=== PATIENT | female | born 1960 | race Caucasian/White ===

== ENCOUNTER 2018-11-12 08:36 | Emergency (ER) | payer MEDICAID ==
[~2018-11-12] VITALS: Ht 165.1 cm; Wt 77.0 kg
[~2018-11-12 08:36] MED LIST: CYCL-1 PO; DOCU-28 PO; HYDR-4383 PO; INSU100V36 SQ; LANTUS SUBCUT; METF-438 PO; SENN25TA27 PO
--- NOTE | 2018-11-12 09:00 | NUR ---
DR CEDENO NOTIFIED OF PT RECENT DIARRHEA AND LOW BLOOD SUGAR THIS MORNING 21, EMS INTERVENTION AMP D50 BG 166 AND RN CHECK 86, NO ORDERS RECEIVED DR Ornelas STATES WILL GO SEE PT NOW, LABS DRAWN FROM IV.
[2018-11-12] MEDS ORDERED: dextrose 50%-water 50ml dispensing syringe IV ONE ×3 (09:25→09:35)
[2018-11-12 09:26] LABS: BASOPHILS # (AUTO) 0.1 X10'3 (0-0.2); BASOPHILS % (AUTO) 0.9 % (0-1); EOSINOPHILS # (AUTO) 0.4 X10'3 (0-0.9); HEMATOCRIT 37.7 % (35.0-45.0); HEMOGLOBIN 12.9 g/dl (12.0-16.0); LYMPHOCYTES # (AUTO) 2.9 X10'3 (1.1-4.8); MEAN CORPUSCULAR HEMOGLOBIN 31.3 PG (27.0-31.0); MEAN CORPUSCULAR HGB CONC 34.1 g/dL (33.0-36.5); MEAN CORPUSCULAR VOLUME 91.8 FL (78-98); MEAN PLATELET VOLUME 8.6 FL (7.4-10.4); MONOCYTES # (AUTO) 1.1 X10'3 (0-0.9); MONOCYTES % (AUTO) 8.8 % (2-12); NEUTROPHILS # (AUTO) 7.6 X10'3 (1.8-7.7); NEUTROPHILS % (AUTO) 63.3 % (42-75); PLATELET COUNT 477 X10'3 (140-440); RED BLOOD COUNT 4.11 X10'6 (4.20-5.60); RED CELL DISTRIBUTION WIDTH 13.9 % (11.5-14.5); WHITE BLOOD COUNT 12.1 X10'3 (4.5-11.0)
[2018-11-12 09:42] LABS: ALANINE AMINOTRANSFERASE 27 U/L (12-78); ALBUMIN 3.7 G/DL (3.4-5.0); ALKALINE PHOSPHATASE 74 IU/L (46-116); ANION GAP 12 (8-16); ASPARTATE AMINO TRANSFERASE 13 U/L (10-37); BILIRUBIN,TOTAL 0.3 MG/DL (0.1-1.0); BLOOD UREA NITROGEN 24 MG/DL (7-18); BUN/CREATININE RATIO 18.8 (6.6-38.0); CALCIUM 9.4 MG/DL (8.5-10.1); CHLORIDE 106 MMOL/L (99-107); CREATININE 1.28 MG/DL (0.40-0.90); GLUCOSE 69 MG/DL (70-104); MAGNESIUM 1.2 MG/DL (1.5-2.4); SODIUM 142 MMOL/L (135-145); TOTAL CARBON DIOXIDE 24.1 MMOL/L (24-32); TOTAL PROTEIN 7.5 G/DL (6.4-8.2); eGFR 43 ML/MIN
[2018-11-12 09:57] LABS: POTASSIUM 2.9 MMOL/L (3.5-5.1)
--- NOTE | 2018-11-12 09:57 | NUR ---
PT IS MORE AWAKE AFTER AMP D50 AND MILK, EYES OPEN TALKING TO STAFF AND SPOUSE, STAT MEAL TRAY ORDERED BY BODY DESIGNER, STRAIGHT URINE OBTAINED AND SENT TO LAB PER ORDERS
[2018-11-12 10:11] LABS: CLARITY,URINE SLIGHTLY CLOUDY (Clear); COLOR,URINE YELLOW (Yellow); GLUCOSE, URINE 250 mg/dl (Neg); KETONES,URINE NEGATIVE (Neg); LEUKOCYTE ESTERASE ,URINE NEGATIVE (Neg); NITRITES, URINE NEGATIVE (Neg); OCCULT BLOOD,URINE NEGATIVE (Neg); PH,URINE 5.5 (4.8-8.0); PROTEIN,URINE 100 mg/dl (Neg); UROBILINOGEN,URINE 0.2 E.U/dL (0.2-1.0)
[2018-11-12 10:18] LABS: SQUAMOUS EPITHELIAL CELL,UR FEW /LPF (FEW); UA COLLECTION TYPE STRAIGHT CATH
[2018-11-12 10:19] LABS: HYALINE CASTS 0-3 /LPF (NEGATIVE)
--- NOTE | 2018-11-12 10:19 | NUR ---
PT SITTING UP AND EATING MEAL TRAY NOW, SPOUSE REMAINS AT BEDSIDE, PT CONTINUES TO IMPROVE IN SKIN COLOR, RESPONSIVE AND A&OX 4
[2018-11-12 10:21] LABS: BACTERIA,URINE FEW /HPF (Neg); RBC,URINE 0-2 /HPF (0-2); WBC,URINE 0-4 /HPF (0-4)
[2018-11-12 10:22] LABS: AMORPHOUS URATES 1+
--- NOTE | 2018-11-12 10:31 | NUR ---
DR CEDENO ASKED IF HE WILL BE ORDERING POTASSIUM DUE TO LOW POTASSIUM 2.9, ORDERS TO FOLLOW.
[2018-11-12] MEDS ORDERED: potassium Cl 20 mEq SR tablet PO STA (10:32)
[2018-11-12] MEDS ORDERED: magnesium oxide 400mg tablet PO ONE (10:35)
[2018-11-12] MEDS ORDERED: normal saline 1000ML IV soln IV ONE (12:30)
--- NOTE | 2018-11-12 12:37 | NUR ---
STOOL SAMPLE SENT TO LAB PER ORDERESTEFANIA NOW
--- NOTE | 2018-11-12 12:38 | NUR ---
[facility] IS PT RIDE HOME AND IS LEAVING NOW H# [phone] AND C [phone] CALL [facility] FOR PT TRANSPORT HOME WHEN DISCHARGED
[2018-11-12 13:26] LABS: C DIFF ANTIGEN NEGATIVE (NEGATIVE); C DIFF SPECIMEN=DIARRHEA? ACCEPTABLE; C DIFFICILE TOXINS A&B NEGATIVE (Neg)
--- NOTE | 2018-11-12 14:10 | NUR ---
DR CEDENO NOTIFIED PT C/O NAUSEA, AND PT BG 160, ORDERS FOR ZOFRAN TO FOLLOW
[2018-11-12] MEDS ORDERED: ondansetron/PF 4mg/2ml inj IV ONE (14:15)
[2018-11-12 14:19] VITALS: BP 174/93
== END 2018-11-12 14:36 | disposition home or self-care (01) ==
LOC: ER 08:36
DX: K52.9 Noninfective gastroenteritis and colitis, unspecified (principal); E87.2 Acidosis; E11.649 Type 2 diabetes mellitus with hypoglycemia without coma; I10 Essential (primary) hypertension; Z79.4 Long term (current) use of insulin; Z79.899 Other long term (current) drug therapy
CPT/HCPCS: 36415; 71045; 80053; 81001; 82948; 83605; 83735; 84145; 84484; 85025; 87040; 87045; 87046; 87324; 87449; 89055; 93005; 96361; 96374; 96375; 99284; J2405; J7030; J7040

== ENCOUNTER 2019-08-05 18:47 | Emergency (ER) | payer MEDICAID ==
[~2019-08-05] VITALS: Ht 160 cm; Wt 67.7 kg
[2019-08-05 19:42] LABS: BASOPHILS # (AUTO) 0.1 X10'3 (0-0.2); BASOPHILS % (AUTO) 0.9 % (0-1); EOSINOPHILS # (AUTO) 0.3 X10'3 (0-0.9); EOSINOPHILS % (AUTO) 2.9 % (0-6); HEMATOCRIT 35.6 % (35.0-45.0); HEMOGLOBIN 12.1 g/dl (12.0-16.0); LYMPHOCYTES % (AUTO) 26.3 % (21-51); MEAN CORPUSCULAR HEMOGLOBIN 31.5 PG (27.0-31.0); MEAN CORPUSCULAR HGB CONC 33.9 g/dL (33.0-36.5); MEAN CORPUSCULAR VOLUME 92.9 FL (78-98); MEAN PLATELET VOLUME 8.9 FL (7.4-10.4); MONOCYTES # (AUTO) 0.7 X10'3 (0-0.9); MONOCYTES % (AUTO) 5.9 % (2-12); NEUTROPHILS # (AUTO) 7.2 X10'3 (1.8-7.7); PLATELET COUNT 373 X10'3 (140-440); RED BLOOD COUNT 3.83 X10'6 (4.20-5.60); RED CELL DISTRIBUTION WIDTH 13.7 % (11.5-14.5); WHITE BLOOD COUNT 11.3 X10'3 (4.5-11.0)
[2019-08-05 19:54] LABS: ALANINE AMINOTRANSFERASE 36 U/L (12-78); ALBUMIN 3.6 G/DL (3.4-5.0); ALKALINE PHOSPHATASE 85 IU/L (46-116); ANION GAP 8 (8-16); ASPARTATE AMINO TRANSFERASE 20 U/L (10-37); BILIRUBIN,TOTAL 0.2 MG/DL (0.1-1.0); BLOOD UREA NITROGEN 23 MG/DL (7-18); BUN/CREATININE RATIO 14.8 (6.6-38.0); CALCIUM 9.3 MG/DL (8.5-10.1); CHLORIDE 101 MMOL/L (99-107); CREATININE 1.55 MG/DL (0.40-0.90); GLUCOSE 295 MG/DL (70-104); POTASSIUM 4.1 MMOL/L (3.5-5.1); SODIUM 138 MMOL/L (135-145); TOTAL CARBON DIOXIDE 29.1 MMOL/L (24-32); TOTAL PROTEIN 7.2 G/DL (6.4-8.2); eGFR 34 ML/MIN
--- NOTE | 2019-08-05 20:09 | NUR ---
Pt states she has diabetic neuropathy that makes her feet and legs numb over the last few years. Pt has told her doctor about it, but Pt states that she "just skips over that part."
[2019-08-05 21:13] LABS: CLARITY,URINE CLEAR (Clear); COLOR,URINE YELLOW (Yellow); GLUCOSE, URINE 250 mg/dl (Neg); KETONES,URINE NEGATIVE (Neg); LEUKOCYTE ESTERASE ,URINE NEGATIVE (Neg); NITRITES, URINE NEGATIVE (Neg); OCCULT BLOOD,URINE NEGATIVE (Neg); PROTEIN,URINE 30 mg/dl (Neg); UROBILINOGEN,URINE 0.2 E.U/dL (0.2-1.0)
[2019-08-05 21:20] LABS: UA COLLECTION TYPE CLN CATCH MIDSTREAM
[2019-08-05 21:23] LABS: BACTERIA,URINE FEW /HPF (Neg); RBC,URINE NONE SEEN /HPF (0-2); SQUAMOUS EPITHELIAL CELL,UR MODERATE /LPF (FEW); TRANSITIONAL EPI CELLS,URINE FEW /HPF; WBC,URINE 0-4 /HPF (0-4)
[2019-08-05 21:30] VITALS: BP 169/83
== END 2019-08-05 21:32 | disposition home or self-care (01) ==
LOC: ER 18:48
DX: R32 Unspecified urinary incontinence (principal); R15.9 Full incontinence of feces; R53.1 Weakness; I10 Essential (primary) hypertension; E11.9 Type 2 diabetes mellitus without complications; Z88.6 Allergy status to analgesic agent; Z79.4 Long term (current) use of insulin; Z79.84 Long term (current) use of oral hypoglycemic drugs; Z79.899 Other long term (current) drug therapy
CPT/HCPCS: 36415; 72148; 80053; 81001; 85025; 99284

== ENCOUNTER 2020-02-19 14:40 | Inpatient (IN) | payer MEDICAID ==
[~2020-02-19] VITALS: Ht 160 cm; Wt 81.4 kg
[2020-02-19] MEDS ORDERED: iohexol 350MG/ML 100ml bottle IV ONE (14:49)
--- NOTE | 2020-02-19 15:00 | NUR ---
arrived to ed for stroke alert, pt to ct scan. soc awaiting pt return
[2020-02-19 15:10] LABS: BASOPHILS # (AUTO) 0.2 X10'3 (0-0.2); BASOPHILS % (AUTO) 1.3 % (0-1); EOSINOPHILS # (AUTO) 0.3 X10'3 (0-0.9); EOSINOPHILS % (AUTO) 2.4 % (0-6); HEMATOCRIT 36.9 % (35.0-45.0); HEMOGLOBIN 12.5 g/dl (12.0-16.0); LYMPHOCYTES # (AUTO) 2.9 X10'3 (1.1-4.8); LYMPHOCYTES % (AUTO) 23.5 % (21-51); MEAN CORPUSCULAR VOLUME 94.4 FL (78-98); MEAN PLATELET VOLUME 8.5 FL (7.4-10.4); MONOCYTES # (AUTO) 0.6 X10'3 (0-0.9); MONOCYTES % (AUTO) 5.1 % (2-12); NEUTROPHILS # (AUTO) 8.3 X10'3 (1.8-7.7); NEUTROPHILS % (AUTO) 67.7 % (42-75); PLATELET COUNT 398 X10'3 (140-440); RED BLOOD COUNT 3.91 X10'6 (4.20-5.60); RED CELL DISTRIBUTION WIDTH 13.5 % (11.5-14.5); WHITE BLOOD COUNT 12.3 X10'3 (4.5-11.0)
--- NOTE | 2020-02-19 15:14 | NUR ---
CT scan completed. Patient states her difficulty speaking began last night, daughter confirmed that patient began having trouble with her words last night.
[2020-02-19 15:17] LABS: PARTIAL THROMBOPLASTIN TIME 26 SECONDS (22-32)
[2020-02-19 15:19] LABS: ALANINE AMINOTRANSFERASE 44 U/L (12-78); ALBUMIN 3.7 G/DL (3.4-5.0); ALBUMIN/GLOBULIN RATIO 0.9 (1.1-1.5); ALKALINE PHOSPHATASE 89 IU/L (46-116); ANION GAP 9 (8-16); ASPARTATE AMINO TRANSFERASE 21 U/L (10-37); BILIRUBIN,TOTAL 0.3 MG/DL (0.1-1.0); BLOOD UREA NITROGEN 23 MG/DL (7-18); BUN/CREATININE RATIO 12.4 (6.6-38.0); CHLORIDE 103 MMOL/L (99-107); CREATININE 1.85 MG/DL (0.40-0.90); GLUCOSE 276 MG/DL (70-104); POTASSIUM 4.2 MMOL/L (3.5-5.1); SODIUM 140 MMOL/L (135-145); TOTAL CARBON DIOXIDE 28.1 MMOL/L (24-32); TOTAL PROTEIN 7.6 G/DL (6.4-8.2); eGFR 28 ML/MIN
[2020-02-19] MEDS ORDERED: MESSAGE TO NURSING PO ONE (15:20)
--- NOTE | 2020-02-19 15:20 | NUR ---
[place] [facility] [place]. Per pt and her daughter Sarah, it is determined that these symptoms started yesterday, she was hesitant to come to hospital. NIHSS 2 with difficulty speaking and left leg drift.
--- NOTE | 2020-02-19 15:40 | NUR ---
pt requires much emotional support, tearful. I have connected her with her daughter and mother via phone. Will continue to offer support and reassurance.
--- NOTE | 2020-02-19 15:47 | NUR ---
I have gone to the parking lot X2 to speak to her Ace, he is not to be found.
[2020-02-19] MEDS ORDERED: LORazepam 2 mg/ml vial IV ONE (15:55)
--- NOTE | 2020-02-19 15:55 | NUR ---
discussed pt's continued anxiety regardless of family and staff redirection efforts w/ anders harrington; new order for ativan 0.5mg received.
[2020-02-19] MEDS ORDERED: clopidogrel 300mg tablet PO ONE (16:00)
[2020-02-19] MEDS ORDERED: mag hydrox/Alum hydrox/simeth 30ml oral suspension PO PRN (16:30)
[2020-02-19] MEDS ORDERED: HYDROcodone/acetaminophen 5mg/325mg tablet PO PRN (16:30)
[2020-02-19] MEDS ORDERED: magnesium Cl slow-release 64mg tablet PO PRN (16:30)
[2020-02-19] MEDS ORDERED: potassium Cl 20 mEq SR tablet PO PRN ×2 (16:30)
[2020-02-19] MEDS ORDERED: MESSAGE TO PHARMACY PO ONE (16:30)
[2020-02-19] MEDS ORDERED: magnesium 2GM in 50ml NS 50 ML IV PRN (16:30)
[2020-02-19] MEDS ORDERED: magnesium 4gm in 100ml NS 100 ML IV PRN (16:30)
[2020-02-19] MEDS ORDERED: HYDROcodone/acetaminophen 10/325mg tab PO PRN (16:30)
[2020-02-19] MEDS ORDERED: acetaminophen 325mg tablet PO PRN ×2 (16:30)
[2020-02-19] MEDS ORDERED: morphine 2 MG/ML inj. syringe IV PRN ×2 (16:30)
[2020-02-19] MEDS ORDERED: dextrose ORAL solution 15 GM/59 ML bottle PO PRN ×2 (16:30)
[2020-02-19] MEDS ORDERED: bisacodyl 10mg suppository rectal RC PRN (16:30)
[2020-02-19] MEDS ORDERED: diphenhydrAMINE 25mg capsule PO PRN (16:30)
[2020-02-19] MEDS ORDERED: potassium CL 10mEq/100ml bag 100 ML IV PRN ×2 (16:30)
[2020-02-19] MEDS ORDERED: ondansetron/PF 4mg/2ml inj IV PRN (16:30)
[2020-02-19] MEDS ORDERED: magnesium hydroxide 30ml (MOM) UD suspension PO PRN (16:30)
[2020-02-19] MEDS ORDERED: acetaminophen 650mg rectal suppository RC PRN (16:30)
[2020-02-19] MEDS ORDERED: glucagon, human recombinant 1mg kit SUBCUT PRN (16:30)
[2020-02-19] MEDS ORDERED: dextrose 50%-water 50ml dispensing syringe IV PRN ×2 (16:30)
[2020-02-19] MEDS ORDERED: HYDR25TA4 PO (16:44)
[2020-02-19] MEDS ORDERED: CHOL100046 PO (16:44)
[2020-02-19] MEDS ORDERED: CARV-50 PO (16:44)
[2020-02-19] MEDS ORDERED: XAL0.005OS EACHEYE (16:44)
[2020-02-19] MEDS ORDERED: LISI10TA4 PO (16:44)
[2020-02-19] MEDS ORDERED: ALOG25TA PO (16:44)
[2020-02-19] MEDS ORDERED: INSU100I31 SQ (16:44)
[2020-02-19] MEDS ORDERED: PROP10DR5 EACHEYE (16:44)
[2020-02-19] MEDS ORDERED: GABA300C PO (16:44)
[2020-02-19] MEDS ORDERED: METF-438 PO (16:44)
[2020-02-19 16:58] LABS: CHOLESTEROL 148 MG/DL (0-200); HDL CHOLESTEROL 37 MG/DL (35-60); LDL CHOLESTEROL 96 MG/DL (50-100); TRIGLYCERIDES 202 MG/DL (20-135)
[2020-02-19 17:00] LABS: HEMOGLOBIN A1C 9.4 % (4.5-6.2)
[2020-02-19] MEDS: normal saline 1000ml 1,000 ML IV SCH (17:15)
[2020-02-19] MEDS: atorvastatin 20mg tablet PO SCH (17:18)
[2020-02-19] MEDS ORDERED: polyvinyl alcohol ophthalmic drops 15ml bottle EACHEYE PRN (18:30)
[2020-02-19 20:00] VITALS: BP 124/100
[2020-02-19] MEDS: carVEDilol 12.5mg tablet PO SCH (20:00)
[2020-02-19] MEDS: K and/or MAG REPLACEMENT MC SCH (20:00)
[2020-02-19] MEDS: heparin, porcine 5000 units/ml vial SQ SCH (20:00)
[2020-02-19] MEDS: insulin glargine (Lantus) pen - multi-dose SQ SCH (21:00)
[2020-02-19 23:00] VITALS: BP 131/63
[2020-02-20 03:00] VITALS: BP 127/71
--- NOTE | 2020-02-20 03:30 | NUR ---
NOTIFIED OF PT NO VOID SINCE COMING TO HOSPITAL--ORDER RECEIVED FOR STRAIGHT CATH--PT CATHED FOR 1000 ML OF CLEAR YELLOW URINE
[2020-02-20 06:00] VITALS: BP 127/86
[2020-02-20 06:15] LABS: EOSINOPHILS # (AUTO) 0.4 X10'3 (0-0.9); HEMOGLOBIN 11.4 g/dl (12.0-16.0); MEAN CORPUSCULAR HEMOGLOBIN 32.5 PG (27.0-31.0); MONOCYTES # (AUTO) 0.6 X10'3 (0-0.9); NEUTROPHILS # (AUTO) 5.8 X10'3 (1.8-7.7); RED CELL DISTRIBUTION WIDTH 13.8 % (11.5-14.5)
[2020-02-20 06:17] LABS: BASOPHILS # (AUTO) 0.1 X10'3 (0-0.2); BASOPHILS % (AUTO) 0.5 % (0-1); EOSINOPHILS % (AUTO) 3.9 % (0-6); HEMATOCRIT 33.1 % (35.0-45.0); LYMPHOCYTES # (AUTO) 3.1 X10'3 (1.1-4.8); LYMPHOCYTES % (AUTO) 31.1 % (21-51); MEAN CORPUSCULAR HGB CONC 34.5 g/dL (33.0-36.5); MEAN CORPUSCULAR VOLUME 94.2 FL (78-98); MEAN PLATELET VOLUME 8.5 FL (7.4-10.4); MONOCYTES % (AUTO) 6.1 % (2-12); NEUTROPHILS % (AUTO) 58.4 % (42-75); PLATELET COUNT 385 X10'3 (140-440); RED BLOOD COUNT 3.52 X10'6 (4.20-5.60); WHITE BLOOD COUNT 9.9 X10'3 (4.5-11.0)
[2020-02-20 06:51] LABS: ALANINE AMINOTRANSFERASE 35 U/L (12-78); ALBUMIN 3.2 G/DL (3.4-5.0); ALBUMIN/GLOBULIN RATIO 0.9 (1.1-1.5); ALKALINE PHOSPHATASE 76 IU/L (46-116); ANION GAP 10 (8-16); ASPARTATE AMINO TRANSFERASE 16 U/L (10-37); BILIRUBIN,TOTAL 0.2 MG/DL (0.1-1.0); BLOOD UREA NITROGEN 21 MG/DL (7-18); BUN/CREATININE RATIO 14.8 (6.6-38.0); CALCIUM 9.4 MG/DL (8.5-10.1); CHLORIDE 104 MMOL/L (99-107); CHOL/HDL RATIO 4.1 (0.00-4.99); CHOLESTEROL 126 MG/DL (0-200); CREATININE 1.42 MG/DL (0.40-0.90); GLUCOSE 179 MG/DL (70-104); HDL CHOLESTEROL 31 MG/DL (35-60); LDL CHOLESTEROL 82 MG/DL (50-100); MAGNESIUM 1.5 MG/DL (1.5-2.4); PHOSPHORUS 3.5 MG/DL (2.3-4.5); POTASSIUM 3.8 MMOL/L (3.5-5.1); SODIUM 141 MMOL/L (135-145); TOTAL CARBON DIOXIDE 26.6 MMOL/L (24-32); TOTAL PROTEIN 6.7 G/DL (6.4-8.2); TRIGLYCERIDES 191 MG/DL (20-135); eGFR 38 ML/MIN
[2020-02-20] MEDS: normal saline 1000ml 1,000 ML IV SCH ×2 (07:00→19:41)
--- NOTE | 2020-02-20 07:07 | NUR ---
Patient in room PCU 3017. I have received report from JUAN JUSTIN and had the opportunity to ask questions and assume patient care.
[2020-02-20] MEDS: carVEDilol 12.5mg tablet PO SCH ×2 (08:00→20:28)
[2020-02-20] MEDS: gabapentin 300mg capsule PO SCH ×3 (08:00→16:19)
[2020-02-20] MEDS: lisinopril 10 MG tablet PO SCH (08:00)
[2020-02-20] MEDS: K and/or MAG REPLACEMENT MC SCH ×2 (08:00→20:00)
[2020-02-20] MEDS: HYDROchlorothiazide 25mg tablet PO SCH (08:00)
[2020-02-20] MEDS: atorvastatin 20mg tablet PO SCH (08:00)
[2020-02-20] MEDS: latanoprost 0.005% 2.5ml ophthalmic drops EACHEYE SCH (08:55)
[2020-02-20] MEDS: insulin Lispro (HumaLOG) vial - multi-dose SQ SCH ×2 (08:58→12:32)
--- NOTE | 2020-02-20 09:00 | NUR ---
DR. SO NOTIFIED OF STRICT NPO PER ROSA JUSTIN RN. NOT ABLE TO GIVE AM PO MEDS.
[2020-02-20] MEDS: heparin, porcine 5000 units/ml vial SQ SCH ×2 (10:28→20:28)
[2020-02-20 11:00] VITALS: BP 143/74
--- NOTE | 2020-02-20 11:15 | NUR ---
PAGER ID: [phone] MESSAGE: DR. SO, [id number], NO VOID LAST NOC, THEY ST CATHED AT 0330 WITH 1000 CC OUT. TRIED TO VOID BEDFPAN WITHOUT SUCCESS. BLADDER SCAN SHOWED 169CC. WHAT TO DO? CONTRERAS FOR RETENTION? OR? LEYLA [id number]. TY
[2020-02-20] MEDS ORDERED: LIDOcaine 2% 10ml TOPICAL JELLY (Urojet) TP ONE (12:05)
--- NOTE | 2020-02-20 13:46 | NUR ---
Problems reprioritized. Patient report given, questions answered & plan of care reviewed with JUAN WILKINSON.
--- NOTE | 2020-02-20 14:38 | NUR ---
patient bedside swallow by RN- Failed. Patient educated to tuck chin to chest when swallowing and has no issues.
[2020-02-20 15:22] VITALS: BP 143/90
--- NOTE | 2020-02-20 15:30 | NUR ---
DM Consult: A1C 9.4. Pt DX CVA w/ Glu 276 on admit and TG 191 at this time. Pt AOx3 w/ expressive aphasia present pending [employer] BSS tomorrow per EMR. Would benefit from DM/HH diet eds once more appropriate prior to discharge. To f/u 02/23 for initial assessment. Addendum: 02/20/20 at [address] Amended: Links added.
--- NOTE | 2020-02-20 18:24 | NUR ---
Problems reprioritized. Patient report given, questions answered & plan of care reviewed with Janeth MARTINEZ.
[2020-02-20 19:00] VITALS: BP 171/83
[2020-02-20 19:27] LABS: CLARITY,URINE CLEAR (Clear); COLOR,URINE YELLOW (Yellow); GLUCOSE, URINE NEGATIVE (Neg); KETONES,URINE NEGATIVE (Neg); LEUKOCYTE ESTERASE ,URINE TRACE (Neg); NITRITES, URINE NEGATIVE (Neg); OCCULT BLOOD,URINE LARGE (Neg); PH,URINE 6.5 (4.8-8.0); PROTEIN,URINE NEGATIVE (Neg); UROBILINOGEN,URINE 0.2 E.U/dL (0.2-1.0)
[2020-02-20 19:34] LABS: URINE AMPHETAMINE SCREEN POSITIVE (Neg); URINE BARBITUATE SCREEN NEGATIVE (Neg); URINE BENZODIAZEPINES SCREEN NEGATIVE (Neg); URINE CANNABINOID SCREEN NEGATIVE (Neg); URINE COCAINE SCREEN NEGATIVE (Neg); URINE METHADONE SCREEN NEGATIVE (Neg); URINE OPIATE SCREEN NEGATIVE (Neg); URINE PHENCYCLIDINE SCREEN NEGATIVE (Neg)
[2020-02-20 19:36] LABS: UA COLLECTION TYPE FOLEY CATH
[2020-02-20 19:37] LABS: BACTERIA,URINE NONE SEEN /HPF (Neg); RBC,URINE 0-2 /HPF (0-2); SQUAMOUS EPITHELIAL CELL,UR FEW /LPF (FEW); WBC,URINE 0-4 /HPF (0-4)
[2020-02-20] MEDS: insulin glargine (Lantus) pen - multi-dose SQ SCH (21:00)
[2020-02-20 23:00] VITALS: BP 153/76
[2020-02-21] MEDS: gabapentin 300mg capsule PO SCH ×2 (01:08→08:54)
[2020-02-21 02:00] VITALS: BP 132/72
[2020-02-21 06:23] LABS: BASOPHILS # (AUTO) 0.1 X10'3 (0-0.2); BASOPHILS % (AUTO) 0.7 % (0-1); EOSINOPHILS # (AUTO) 0.4 X10'3 (0-0.9); EOSINOPHILS % (AUTO) 3.5 % (0-6); HEMATOCRIT 34.2 % (35.0-45.0); HEMOGLOBIN 11.7 g/dl (12.0-16.0); LYMPHOCYTES # (AUTO) 3.4 X10'3 (1.1-4.8); LYMPHOCYTES % (AUTO) 32.2 % (21-51); MEAN CORPUSCULAR HEMOGLOBIN 32.2 PG (27.0-31.0); MEAN CORPUSCULAR HGB CONC 34.4 g/dL (33.0-36.5); MEAN CORPUSCULAR VOLUME 93.5 FL (78-98); MEAN PLATELET VOLUME 8.3 FL (7.4-10.4); MONOCYTES # (AUTO) 0.7 X10'3 (0-0.9); MONOCYTES % (AUTO) 6.7 % (2-12); NEUTROPHILS # (AUTO) 5.9 X10'3 (1.8-7.7); NEUTROPHILS % (AUTO) 56.9 % (42-75); PLATELET COUNT 393 X10'3 (140-440); RED BLOOD COUNT 3.65 X10'6 (4.20-5.60); RED CELL DISTRIBUTION WIDTH 13.7 % (11.5-14.5); WHITE BLOOD COUNT 10.4 X10'3 (4.5-11.0)
[2020-02-21 06:38] LABS: ALANINE AMINOTRANSFERASE 37 U/L (12-78); ALBUMIN 3.1 G/DL (3.4-5.0); ALBUMIN/GLOBULIN RATIO 0.9 (1.1-1.5); ALKALINE PHOSPHATASE 75 IU/L (46-116); ANION GAP 8 (8-16); ASPARTATE AMINO TRANSFERASE 23 U/L (10-37); BILIRUBIN,TOTAL 0.4 MG/DL (0.1-1.0); BLOOD UREA NITROGEN 15 MG/DL (7-18); BUN/CREATININE RATIO 13.5 (6.6-38.0); CALCIUM 8.5 MG/DL (8.5-10.1); CHLORIDE 107 MMOL/L (99-107); CREATININE 1.11 MG/DL (0.40-0.90); GLUCOSE 156 MG/DL (70-104); MAGNESIUM 1.3 MG/DL (1.5-2.4); PHOSPHORUS 3.5 MG/DL (2.3-4.5); POTASSIUM 3.8 MMOL/L (3.5-5.1); SODIUM 142 MMOL/L (135-145); TOTAL CARBON DIOXIDE 26.6 MMOL/L (24-32); TOTAL PROTEIN 6.7 G/DL (6.4-8.2); eGFR 51 ML/MIN
--- NOTE | 2020-02-21 06:39 | NUR ---
Patient in room PCU 3017. I have received report from Janeth MARTINEZ and had the opportunity to ask questions and assume patient care.
[2020-02-21 06:47] VITALS: BP 151/75
[2020-02-21] MEDS: K and/or MAG REPLACEMENT MC SCH (08:00)
[2020-02-21] MEDS: latanoprost 0.005% 2.5ml ophthalmic drops EACHEYE SCH (08:52)
[2020-02-21] MEDS: HYDROchlorothiazide 25mg tablet PO SCH (08:53)
[2020-02-21] MEDS: lisinopril 10 MG tablet PO SCH (08:53)
[2020-02-21] MEDS: carVEDilol 12.5mg tablet PO SCH (08:53)
[2020-02-21] MEDS: atorvastatin 20mg tablet PO SCH (08:54)
[2020-02-21] MEDS: heparin, porcine 5000 units/ml vial SQ SCH (08:54)
[2020-02-21] MEDS: normal saline 1000ml 1,000 ML IV SCH (08:59)
[2020-02-21] MEDS ORDERED: clopidogrel 75mg tablet PO SCH (09:55)
[2020-02-21] MEDS ORDERED: ATOR20TA66 PO (09:57)
[2020-02-21] MEDS ORDERED: CLOP75TA15 PO (09:57)
[2020-02-21] MEDS ORDERED: clopidogrel 300mg tablet PO ONE (10:00)
[2020-02-21 11:00] VITALS: BP 156/70
--- NOTE | 2020-02-21 11:16 | NUR ---
Dr Silva notified of patients being emotional and tearful, he will order an anti depressant for home.
[2020-02-21] MEDS ORDERED: FLUO20CA39 PO (11:39)
--- NOTE | 2020-02-21 13:00 | NUR ---
Patient discharged home with family. Patient left will all belongings at discharge and was transported home in private vehicle. Patient IV taken out at discharge minimal bleeding at site canula intact upon inspection. Patient was educated verbally on new medications and was also verbally educated on stroke core measures and follow up appointments. Patient was taken down to lobby via wheel chair and transported home via private vehicle.
[2020-02-22] MEDS ORDERED: clopidogrel 75mg tablet PO SCH (08:00)
== END 2020-02-21 13:45 | disposition home health service (06) | DRG 45 ==
LOC: ER 14:40 → ED HOLD 16:28 → EDBEDREQ 18:27 → PCU 3S 20:08
PROVIDERS: ADMIT Family Medicine; ATTEND Family Medicine
DX: I63.511 Cerebral infarction due to unspecified occlusion or stenosis of right middle cerebral artery (principal); D72.829 Elevated white blood cell count, unspecified; E11.65 Type 2 diabetes mellitus with hyperglycemia; E86.0 Dehydration; E11.40 Type 2 diabetes mellitus with diabetic neuropathy, unspecified; G89.4 Chronic pain syndrome; R33.9 Retention of urine, unspecified; I10 Essential (primary) hypertension; F17.210 Nicotine dependence, cigarettes, uncomplicated; I65.21 Occlusion and stenosis of right carotid artery; N17.9 Acute kidney failure, unspecified; R47.01 Aphasia; Z66 Do not resuscitate; Z79.4 Long term (current) use of insulin; Z79.899 Other long term (current) drug therapy; Z88.6 Allergy status to analgesic agent; Z71.6 Tobacco abuse counseling
CPT/HCPCS: 36415; 70450; 70496; 70498; 70544; 70551; 71045; 80053; 80061; 80305; 81001; 82948; 83036; 83735; 84100; 85025; 85610; 85651; 85730; 87081; 87088; 92508; 92616; 93005; 93306; 93308; 93880; 96374; 97112; 97116; 97162; 97530; 99285; G0378; J1644; J1815; J2060; J7030; Q9967